=== PATIENT | male | born 1950 | race Caucasian/White ===

== ENCOUNTER → 2021-09-14 | Outpatient (CLI) | payer MEDICARE | LOC: DX 10:10 | PROVIDERS: ATTEND Internal Medicine Gastroenterology | DX: R13.10 Dysphagia, unspecified (principal); Z93.1 Gastrostomy status | CPT/HCPCS: 0223U; 36415; 74230; 92526; 92611 ==

== ENCOUNTER 2021-09-27 11:33 | Outpatient (RCR) | payer MEDICARE | END 2021-10-26 | LOC: ST 11:33 | PROVIDERS: ATTEND Internal Medicine Gastroenterology | DX: R13.13 Dysphagia, pharyngeal phase (principal) ==

== ENCOUNTER → 2021-10-24 | Outpatient (CLI) | payer MEDICARE | LOC: DX 10:20 | PROVIDERS: ATTEND Internal Medicine Gastroenterology | DX: R13.13 Dysphagia, pharyngeal phase (principal); Z20.822 Contact with and (suspected) exposure to COVID-19 | CPT/HCPCS: 0223U; 36415; 74230; 92526; 92611 ==

== ENCOUNTER → 2021-11-30 | Outpatient (CLI) | payer MEDICARE | LOC: DX 10:28 | PROVIDERS: ATTEND Internal Medicine Gastroenterology | DX: R13.13 Dysphagia, pharyngeal phase (principal) | CPT/HCPCS: 74230 ==

== ENCOUNTER → 2022-06-08 | Outpatient (CLI) | payer MEDICARE | LOC: DX 09:38 | PROVIDERS: ATTEND Internal Medicine | DX: R13.10 Dysphagia, unspecified (principal) | CPT/HCPCS: 74230 ==

== ENCOUNTER 2022-06-28 09:56 | Outpatient (RCR) | payer MEDICARE | END 2022-07-26 | LOC: ST 09:56 | PROVIDERS: ATTEND Internal Medicine | DX: R13.13 Dysphagia, pharyngeal phase (principal) ==

== ENCOUNTER 2022-07-27 09:51 | Outpatient (RCR) | payer MEDICARE | END 2022-08-25 | LOC: ST 09:51 | PROVIDERS: ATTEND Internal Medicine | DX: R13.13 Dysphagia, pharyngeal phase (principal) ==

== ENCOUNTER → 2022-08-07 | Outpatient (CLI) | payer MEDICARE | LOC: DX 10:25 | PROVIDERS: ATTEND Internal Medicine | DX: R13.13 Dysphagia, pharyngeal phase (principal) | CPT/HCPCS: 74230 ==

== ENCOUNTER 2024-02-22 05:37 | Inpatient (IN) | payer MEDICARE ==
[~2024-02-22] VITALS: Ht 172.7 cm; Wt 54.4 kg
[~2024-02-22 05:37] MED LIST: FINASTERIDE5 MG PO; FLOMAX0.4 MG PO; HALOPERIDOL5 MG PO; OXYBUTYNIN CHLOR5 M1 PO; VIT D3 PO
[2024-02-22] MEDS: SODIUM CHLORIDE 0.9% 1000ML 1,000 ML ONE (05:59)
[2024-02-22] MEDS: GENTAMICIN 80MG/NS 100 ML 200 ML IV ONE (06:00)
[2024-02-22] MEDS: CEFTRIAXONE 1 GM VIAL ONE (06:00)
[2024-02-22 06:02] LABS: BASOPHILS % 0.5 % (0.0-1.0); EOSINOPHILS # (AUTO) 0.2 (0.0-0.4); EOSINOPHILS % 2.8 % (0.0-6.0); HEMATOCRIT 43.5 % (38.2-49.6); HEMOGLOBIN 13.8 g/dL (14.0-18.0); LYMPHOCYTES # (AUTO) 2.3 (1.0-3.2); LYMPHOCYTES % 36.6 % (18.0-39.1); MEAN CORPUSCULAR HEMOGLOBIN 32.5 pg (28-32); MEAN CORPUSCULAR HGB CONC 31.7 g/dL (31-35); MEAN CORPUSCULAR VOLUME 102.6 fL (81-99); MONOCYTES # (AUTO) 0.6 (0.2-0.8); MONOCYTES % 8.9 % (4.4-11.3); NEUTROPHILS # (AUTO) 3.2 (2.1-6.9); PLATELET COUNT 227 x10e3/uL (140-360); RED BLOOD COUNT 4.24 x10e6/uL (4.3-5.7); RED CELL DISTRIBUTION WIDTH 14.9 % (11.7-14.4); WHITE BLOOD COUNT 6.17 x10e3/uL (4.8-10.8)
[2024-02-22 06:29] LABS: ALBUMIN 3.7 g/dL (3.5-5.0); ALBUMIN/GLOBULIN RATIO 1.2 (0.8-2.0); ANION GAP 13.1 mmol/L (8-16); BILIRUBIN,TOTAL 0.7 mg/dL (0.2-1.2); CALCIUM 9.5 mg/dL (8.4-10.2); CREATININE, SERUM 0.92 mg/dL (0.72-1.25); POTASSIUM 4.1 mmol/L (3.5-5.1); TOTAL PROTEIN 6.7 g/dL (6.5-8.1)
[2024-02-22] MEDS ORDERED: LIDOCAINE HCL 2% LOCAL INJ 5 ML SDV VIAL INJ ONE (06:59)
[2024-02-22] MEDS ORDERED: PROPOFOL IV EMULSION 10 MG/ML 20 ML VIAL ONE (07:00)
[2024-02-22] MEDS ORDERED: FENTANYL CITRATE/PF 100MCG/2 ML INJ ONE (07:00)
[2024-02-22] MEDS ORDERED: MIDAZOLAM HCL 2 MG/2 ML VIAL ONE (07:00)
[2024-02-22] MEDS ORDERED: EPHEDRINE SULFATE INJ 50 MG/ML VIAL ONE (07:36)
[2024-02-22] MEDS ORDERED: DEXAMETHASONE SOD PHOS INJ 4 MG/ML SDV ONE (07:41)
[2024-02-22] MEDS ORDERED: ONDANSETRON HCL INJ 2MG/ML 2ML 2 MG/ML VIAL ONE (07:41)
[2024-02-22] MEDS ORDERED: SEVOFLURANE INHAL SOLN 250 ML PEN BTL ONE (08:04)
[2024-02-22] MEDS ORDERED: DIPHENHYDRAMINE HCL 25 MG CAP PO PRN (09:15)
[2024-02-22] MEDS ORDERED: ACETAMINOPHEN 1000 MG/100 ML IV PRN (09:15)
[2024-02-22] MEDS ORDERED: ACETAMINOPHEN/CODEINE 300MG - 30MG TAB PO PRN (09:15)
[2024-02-22 09:29] LABS: BASOPHILS % 0.1 % (0.0-1.0); EOSINOPHILS # (AUTO) 0.1 (0.0-0.4); EOSINOPHILS % 0.8 % (0.0-6.0); HEMATOCRIT 39.7 % (38.2-49.6); HEMOGLOBIN 12.5 g/dL (14.0-18.0); LYMPHOCYTES # (AUTO) 1.5 (1.0-3.2); LYMPHOCYTES % 19.4 % (18.0-39.1); MEAN CORPUSCULAR HEMOGLOBIN 32.6 pg (28-32); MEAN CORPUSCULAR HGB CONC 31.5 g/dL (31-35); MEAN CORPUSCULAR VOLUME 103.4 fL (81-99); MONOCYTES # (AUTO) 0.3 (0.2-0.8); MONOCYTES % 3.3 % (4.4-11.3); NEUTROPHILS # (AUTO) 6.1 (2.1-6.9); NEUTROPHILS % 76.1 % (38.7-80.0); PLATELET COUNT 198 x10e3/uL (140-360); RED BLOOD COUNT 3.84 x10e6/uL (4.3-5.7); WHITE BLOOD COUNT 7.95 x10e3/uL (4.8-10.8)
[2024-02-22 09:54] LABS: ANION GAP 11.2 mmol/L (8-16); CALCIUM 7.7 mg/dL (8.4-10.2); CREATININE, SERUM 0.78 mg/dL (0.72-1.25); POTASSIUM 4.2 mmol/L (3.5-5.1)
[2024-02-22] MEDS: LACTATED RINGER'S 0 ML ONE (10:37)
[2024-02-22 10:40] VITALS: BP 103/56; PULSE 60; RESP 18; TEMP 98.3; O2SAT 97
[2024-02-22] MEDS ORDERED: BISACODYL 10 MG SUPP PR PRN (11:00)
[2024-02-22] MEDS ORDERED: POLYETHYLENE GLYCOL 3350 17 GM PACK PO PRN (11:00)
[2024-02-22] MEDS ORDERED: HYDRALAZINE HCL 20 MG/ML VIAL IV PRN (11:00)
[2024-02-22 11:27] VITALS: BP 103/56; PULSE 60; RESP 18; TEMP 98.3; O2SAT 97
[2024-02-22] MEDS: SODIUM CHLORIDE 0.9% 1000ML 1,000 ML IV SCH (11:44)
[2024-02-22] MEDS: MAGNESIUM SULFATE 2GM/50ML 50 ML IV ONE (11:45)
[2024-02-22 13:33] VITALS: PULSE 74; RESP 20; O2SAT 96
[2024-02-22 16:04] VITALS: BP 137/81; PULSE 81; RESP 17; TEMP 97.4; O2SAT 97
[2024-02-22] MEDS: SENNA-S TABLET PO SCH (17:08)
[2024-02-22 19:53] VITALS: BP 137/81; PULSE 81; RESP 17; TEMP 97.4; O2SAT 97
[2024-02-22 20:25] VITALS: BP 115/60; PULSE 71; RESP 17; RESP 20; TEMP 98.5; O2SAT 98
[2024-02-23] VITALS (10 sets, daily range): BP systolic 100–119; BP diastolic 51–77; PULSE 61–84; RESP 18–20; TEMP 98.2–99; O2SAT 97–99
[2024-02-23 07:47] LABS: BASOPHILS % 0.2 % (0.0-1.0); EOSINOPHILS # (AUTO) 0.1 (0.0-0.4); EOSINOPHILS % 0.9 % (0.0-6.0); HEMATOCRIT 35.2 % (38.2-49.6); HEMOGLOBIN 11.8 g/dL (14.0-18.0); LYMPHOCYTES # (AUTO) 1.6 (1.0-3.2); LYMPHOCYTES % 16.7 % (18.0-39.1); MEAN CORPUSCULAR HEMOGLOBIN 33.1 pg (28-32); MEAN CORPUSCULAR HGB CONC 33.5 g/dL (31-35); MEAN CORPUSCULAR VOLUME 98.6 fL (81-99); MONOCYTES # (AUTO) 0.9 (0.2-0.8); MONOCYTES % 9.3 % (4.4-11.3); NEUTROPHILS # (AUTO) 7.1 (2.1-6.9); NEUTROPHILS % 72.6 % (38.7-80.0); PLATELET COUNT 199 x10e3/uL (140-360); RED BLOOD COUNT 3.57 x10e6/uL (4.3-5.7); RED CELL DISTRIBUTION WIDTH 14.6 % (11.7-14.4); WHITE BLOOD COUNT 9.77 x10e3/uL (4.8-10.8)
[2024-02-23 08:13] LABS: ANION GAP 10.8 mmol/L (8-16); CALCIUM 8.2 mg/dL (8.4-10.2); CREATININE, SERUM 0.82 mg/dL (0.72-1.25); POTASSIUM 3.8 mmol/L (3.5-5.1)
[2024-02-23 08:14] LABS: ALBUMIN 2.9 g/dL (3.5-5.0); BILIRUBIN,DIRECT 0.4 mg/dL (0.0-0.5); BILIRUBIN,TOTAL 0.8 mg/dL (0.2-1.2); MAGNESIUM 1.8 MG/DL (1.3-2.1); TOTAL PROTEIN 5.4 g/dL (6.5-8.1)
[2024-02-23 08:34] LABS: FERRITIN 147.18 ng/mL (21.81-274.66)
[2024-02-23] MEDS ORDERED: SENNOSIDES 8.6 MG TAB PO SCH (09:00)
[2024-02-23] MEDS ORDERED: DOCUSATE SODIUM 100 MG CAP PO SCH (09:00)
[2024-02-23] MEDS: FOLIC ACID 1 MG TAB PO SCH (11:50)
[2024-02-23] MEDS: FINASTERIDE 5 MG TAB PO SCH (11:50)
[2024-02-23] MEDS: OXYBUTYNIN CHLORIDE XL 5 MG TAB PO SCH (11:50)
[2024-02-23] MEDS: HALOPERIDOL 5 MG TAB PO SCH (20:44)
[2024-02-23] MEDS: TAMSULOSIN HCL 0.4 MG CAP PO SCH (20:44)
[2024-02-23] MEDS: MELATONIN 3 MG TAB PO SCH (20:44)
[2024-02-24] VITALS (7 sets, daily range): BP systolic 102–116; BP diastolic 69–75; PULSE 54–69; RESP 17–20; TEMP 98.1–98.3; O2SAT 97–100
[2024-02-24 05:48] LABS: BASOPHILS % 0.2 % (0.0-1.0); EOSINOPHILS # (AUTO) 0.2 (0.0-0.4); EOSINOPHILS % 2.1 % (0.0-6.0); HEMATOCRIT 35.1 % (38.2-49.6); HEMOGLOBIN 11.8 g/dL (14.0-18.0); LYMPHOCYTES # (AUTO) 1.8 (1.0-3.2); LYMPHOCYTES % 21.5 % (18.0-39.1); MEAN CORPUSCULAR HEMOGLOBIN 32.6 pg (28-32); MEAN CORPUSCULAR HGB CONC 33.6 g/dL (31-35); MONOCYTES # (AUTO) 0.8 (0.2-0.8); MONOCYTES % 9.5 % (4.4-11.3); NEUTROPHILS # (AUTO) 5.6 (2.1-6.9); NEUTROPHILS % 66.5 % (38.7-80.0); PLATELET COUNT 187 x10e3/uL (140-360); RED BLOOD COUNT 3.62 x10e6/uL (4.3-5.7); RED CELL DISTRIBUTION WIDTH 14.9 % (11.7-14.4)
[2024-02-24 06:16] LABS: ANION GAP 10.9 mmol/L (8-16); CALCIUM 8.4 mg/dL (8.4-10.2); CREATININE, SERUM 0.73 mg/dL (0.72-1.25); POTASSIUM 3.9 mmol/L (3.5-5.1)
[2024-02-24] MEDS: PHENAZOPYRIDINE HCL 100 MG TAB PO PRN (08:08)
[2024-02-24] MEDS: MAGNESIUM SULFATE 2GM/50ML 50 ML IV ONE (11:33)
[2024-02-25] VITALS (10 sets, daily range): BP systolic 101–112; BP diastolic 62–77; PULSE 60–83; RESP 17–20; TEMP 97.7–98.6; O2SAT 96–100
[2024-02-25 07:09] LABS: BASOPHILS % 0.4 % (0.0-1.0); EOSINOPHILS # (AUTO) 0.3 (0.0-0.4); EOSINOPHILS % 3.5 % (0.0-6.0); HEMATOCRIT 37.1 % (38.2-49.6); LYMPHOCYTES # (AUTO) 1.7 (1.0-3.2); LYMPHOCYTES % 22.4 % (18.0-39.1); MEAN CORPUSCULAR HEMOGLOBIN 32.7 pg (28-32); MEAN CORPUSCULAR HGB CONC 32.3 g/dL (31-35); MEAN CORPUSCULAR VOLUME 101.1 fL (81-99); MONOCYTES # (AUTO) 0.7 (0.2-0.8); MONOCYTES % 8.8 % (4.4-11.3); NEUTROPHILS # (AUTO) 4.8 (2.1-6.9); NEUTROPHILS % 64.6 % (38.7-80.0); PLATELET COUNT 181 x10e3/uL (140-360); RED BLOOD COUNT 3.67 x10e6/uL (4.3-5.7); RED CELL DISTRIBUTION WIDTH 14.9 % (11.7-14.4); WHITE BLOOD COUNT 7.38 x10e3/uL (4.8-10.8)
[2024-02-25 07:34] LABS: CALCIUM 8.4 mg/dL (8.4-10.2); CREATININE, SERUM 0.73 mg/dL (0.72-1.25)
[2024-02-26] VITALS: BP 133/64; PULSE 101; RESP 18; TEMP 99; O2SAT 100
[2024-02-26 04:00] VITALS: BP 98/61; PULSE 80; RESP 18; TEMP 98.1; O2SAT 100
[2024-02-26 07:21] LABS: BASOPHILS % 0.2 % (0.0-1.0); EOSINOPHILS # (AUTO) 0.1 (0.0-0.4); EOSINOPHILS % 1.1 % (0.0-6.0); HEMOGLOBIN 11.5 g/dL (14.0-18.0); LYMPHOCYTES # (AUTO) 1.4 (1.0-3.2); MEAN CORPUSCULAR HEMOGLOBIN 33.1 pg (28-32); MEAN CORPUSCULAR HGB CONC 33.8 g/dL (31-35); MONOCYTES # (AUTO) 0.9 (0.2-0.8); MONOCYTES % 8.8 % (4.4-11.3); NEUTROPHILS # (AUTO) 7.6 (2.1-6.9); NEUTROPHILS % 75.4 % (38.7-80.0); PLATELET COUNT 194 x10e3/uL (140-360); RED BLOOD COUNT 3.47 x10e6/uL (4.3-5.7); RED CELL DISTRIBUTION WIDTH 14.5 % (11.7-14.4); WHITE BLOOD COUNT 10.01 x10e3/uL (4.8-10.8)
[2024-02-26 07:42] VITALS: PULSE 67; RESP 20; O2SAT 97
[2024-02-26 07:50] LABS: ANION GAP 12.1 mmol/L (8-16); CALCIUM 8.4 mg/dL (8.4-10.2); CREATININE, SERUM 0.74 mg/dL (0.72-1.25); POTASSIUM 4.1 mmol/L (3.5-5.1)
[2024-02-26 08:31] VITALS: BP 112/68; PULSE 67; RESP 20; TEMP 97.9; O2SAT 100
[2024-02-26 08:38] VITALS: BP 112/68; PULSE 67; RESP 20; TEMP 97.9; O2SAT 100
[2024-02-26 12:42] VITALS: BP 106/62; PULSE 74; RESP 20; TEMP 98.2; O2SAT 98
[2024-02-26] MEDS ORDERED: LEVOFLOXACIN250 MG PO (12:58)
== END 2024-02-26 16:22 | disposition home or self-care (01) | DRG 713 ==
LOC: OR 05:37 → EDSEX 07:00 → PACU V 09:07 → MED/SURG3 10:21
PROVIDERS: ADMIT Internal Medicine; ATTEND Internal Medicine
PROC: 0T9B70Z Drainage of Bladder with Drainage Device, Via Natural or Artificial Opening (ICD-10-PCS; 2024-02-22)
PROC: BT141ZZ Fluoroscopy of Kidneys, Ureters and Bladder using Low Osmolar Contrast (ICD-10-PCS; 2024-02-22)
PROC: 0V507ZZ Destruction of Prostate, Via Natural or Artificial Opening (ICD-10-PCS; principal; 2024-02-22 07:25)
DX: N40.1 Benign prostatic hyperplasia with lower urinary tract symptoms (principal); E46 Unspecified protein-calorie malnutrition; F03.B18 Unspecified dementia, moderate, with other behavioral disturbance; Z68.1 Body mass index [BMI] 19.9 or less, adult; J98.11 Atelectasis; N13.8 Other obstructive and reflux uropathy; D52.9 Folate deficiency anemia, unspecified; R35.1 Nocturia; E78.2 Mixed hyperlipidemia; R39.14 Feeling of incomplete bladder emptying; N32.81 Overactive bladder; R31.9 Hematuria, unspecified; N43.3 Hydrocele, unspecified; G47.33 Obstructive sleep apnea (adult) (pediatric); F20.9 Schizophrenia, unspecified; R53.81 Other malaise; D53.9 Nutritional anemia, unspecified; Z90.49 Acquired absence of other specified parts of digestive tract; Z91.041 Radiographic dye allergy status
CPT/HCPCS: 36415; 51700; 71046; 74420; 80048; 80053; 80076; 82607; 82728; 82746; 82948; 83540; 83735; 84134; 84466; 85025; 86850; 86900; 88305; 93005; 94799; C1758; J0696; J1100; J1580; J2003; J2250; J2405; J3475; J7030